=== PATIENT | female | born 1960 | race Caucasian/White ===

== ENCOUNTER → 2016-11-25 | Outpatient (CLI) | payer OTHER ==
[~2016-11-25] MED LIST: CELEXA40 MG PO; CITALOPRAM HBR20 MG PO; CITALOPRAM HBR40 MG PO; COZAAR50 MG PO; KEFLEX500 MG PO; LOSARTAN POTASS25 MG PO; LOSARTAN POTASS50 MG PO; PERCOCET 5/31 TABLET PO
== END | disposition home or self-care (01) ==
DX: M16.12 Unilateral primary osteoarthritis, left hip (principal); M25.552 Pain in left hip; M25.652 Stiffness of left hip, not elsewhere classified; R26.2 Difficulty in walking, not elsewhere classified; M62.89 Other specified disorders of muscle
CPT/HCPCS: 97110 GP; 97150 GO; 97161 GP; 97165 GO

== ENCOUNTER 2016-12-30 09:34 | Inpatient (IN) | payer OTHER ==
[~2016-12-30] VITALS: Ht 167.6 cm; Wt 69.3 kg
[~2016-12-30 09:34] MED LIST changes: +IRON325 M1 PO; +TYLENOL ARTHRI650 MG PO
[2016-12-30 11:47] VITALS: BP 134/82
[2016-12-30 17:12] LABS: HEMATOCRIT 31.4 % (36.0-46.0); MCHC 31.8 G/DL (30.0-36.0); MEAN PLAT.VOLUME 9.1 uM^3 (9.5-12.4); RBC DIS.WIDTH-CV 13.8 % (11.8-14.6); RBC DIS.WIDTH-SD 46.2 % (39-53)
[2016-12-30 17:44] LABS: PLATELET COUNT 217 K/uL (156-360); RED BLOOD COUNT 3.45 M/uL (3.80-5.20); WHITE BLOOD COUNT 12.9 K/uL (4.1-10.2)
[2016-12-30 20:24] VITALS: BP 112/69
[2016-12-31 00:30] VITALS: BP 100/59
[2016-12-31 04:45] VITALS: BP 106/68
[2016-12-31 07:30] LABS: ANION GAP 7 MEQ/L (2-14); CHLORIDE 101 MEQ/L (99-109); GFR ESTIMATE (CALCULATED) > 59 mL/min/; GLUCOSE 128 mg/dL (70-99); POTASSIUM 4.4 MEQ/L (3.7-5.4); SAMPLE HEMOLYSIS CHECK 0; SAMPLE ICTERIC CHECK 0; SAMPLE LIPEMIA CHECK 0; SODIUM 136 MEQ/L (136-147); UREA NITROGEN (BUN) 10 mg/dL (9-23)
[2016-12-31 08:27] VITALS: BP 109/65
[2016-12-31 16:09] VITALS: BP 106/63
[2016-12-31 16:39] LABS: HEMATOCRIT 31.2 % (36.0-46.0); MCV 90.4 FL (83-99)
[2016-12-31 20:21] VITALS: BP 115/60
[2017-01-01 00:13] VITALS: BP 114/67
[2017-01-01 05:26] LABS: HEMATOCRIT 28.5 % (36.0-46.0); MCV 91.9 FL (83-99)
[2017-01-01 06:18] LABS: ANION GAP 7 MEQ/L (2-14); CHLORIDE 104 MEQ/L (99-109); GFR ESTIMATE (CALCULATED) > 59 mL/min/; GLUCOSE 116 mg/dL (70-99); POTASSIUM 3.8 MEQ/L (3.7-5.4); SAMPLE HEMOLYSIS CHECK 0; SAMPLE ICTERIC CHECK 0; SAMPLE LIPEMIA CHECK 0; SODIUM 141 MEQ/L (136-147); UREA NITROGEN (BUN) 11 mg/dL (9-23)
[2017-01-01 08:02] VITALS: BP 112/62
[2017-01-01] MEDS ORDERED: HYDROCODON-ACE1 EAC7 PO (08:48)
[2017-01-01] MEDS ORDERED: LOVENOX40 MG/0.4 SC (08:48)
[2017-01-01] MEDS ORDERED: CELECOXIB200 MG PO (08:48)
[2017-01-01] MEDS ORDERED: DOCUSATE SODIU100 MG PO (08:48)
== END 2017-01-01 16:11 | DRG 470 ==
LOC: 2SOUTH 09:34 → 3EAST 11:25 → 3WEST 12:23 → 2SOUTH 12:24 → 3EAST 20:02
PROVIDERS: Orthopaedic Surgery; Physician Assistant
PROC: 0SRB02A Replacement of Left Hip Joint with Metal on Polyethylene Synthetic Substitute, Uncemented, Open Approach (ICD-10-PCS; principal; 2016-12-30)
DX: M16.12 Unilateral primary osteoarthritis, left hip (principal); F33.9 Major depressive disorder, recurrent, unspecified; I10 Essential (primary) hypertension; R26.0 Ataxic gait; F41.9 Anxiety disorder, unspecified; Z60.2 Problems related to living alone; R26.2 Difficulty in walking, not elsewhere classified; Z85.3 Personal history of malignant neoplasm of breast; Z88.0 Allergy status to penicillin
CPT/HCPCS: 73501; 73502; 77002; 80048; 85014; 85018; 85027; J0131; J1100; J1170; J1650; J2250; J2405; J2710; J2765; J3010; J7050; P9045

== ENCOUNTER 2017-01-13 18:51 | Inpatient (IN) | payer OTHER ==
[~2017-01-13] VITALS: Ht 167.6 cm; Wt 69.0 kg
[~2017-01-13 18:51] MED LIST changes: +CELECOXIB200 MG PO; +DOCUSATE SODIU100 MG PO; +HYDROCODON-ACE1 EAC7 PO; +LOVENOX40 MG/0.4 SC
[2017-01-13 19:48] LABS: EOSINOPHIL (%) 0.2 % (0-5); HEMATOCRIT 37.9 % (36.0-46.0); IMMATURE GRANULOCYTE (%) 0.2 % (0.0-0.7); IMMATURE GRANULOCYTE COUNT 0.3 K/uL; LYMPHOCYTE COUNT 1.1 K/uL (1.0-2.8); MCH 29.9 PG (29.0-34.0); MCHC 33.5 G/DL (30.0-36.0); MCV 89.2 FL (83-99); MEAN PLAT.VOLUME 8.6 uM^3 (9.5-12.4); MONOCYTE (%) 5.6 % (3-12); MONOCYTE COUNT 0.8 K/uL (0-0.8); NEUTROPHIL (%) 85.3 % (45-76); NEUTROPHIL COUNT 11.5 K/uL (1.8-6.4); PLATELET COUNT 439 K/uL (156-360); RBC DIS.WIDTH-CV 13.1 % (11.8-14.6); RBC DIS.WIDTH-SD 41.4 % (39-53); RED BLOOD COUNT 4.25 M/uL (3.80-5.20); WHITE BLOOD COUNT 13.5 K/uL (4.1-10.2)
[2017-01-13 19:58] LABS: CHLORIDE 102 mEq/L (99-109); POTASSIUM 3.9 mEq/L (3.7-5.4); SODIUM 140 mEq/L (136-147)
[2017-01-13 20:01] LABS: GLUCOSE 135 mg/dL (70-99)
[2017-01-13 20:02] LABS: ANION GAP 13 MEQ/L (2-14)
[2017-01-13 20:03] LABS: TOTAL BILIRUBIN 0.4 mg/dL (0.0-1.0)
[2017-01-13 20:04] LABS: ALKALINE PHOSPHATASE 84 IU/L (3-129); GFR ESTIMATE (CALCULATED) > 59 mL/min/
[2017-01-13 20:05] LABS: UREA NITROGEN (BUN) 8 mg/dL (9-23)
[2017-01-13 20:08] LABS: LIPASE 456 U/L (1.0-51.0)
[2017-01-13 20:10] LABS: TROP-I INTERPRETATION NEGATIVE; TROPONIN-I < 0.01 ng/mL (0.0-0.30)
[2017-01-13] MEDS ORDERED: FISH OIL 1,0001 EA11 PO (21:38)
[2017-01-13 22:43] LABS: ADD MIUA? NO; BILIRUBIN NEGATIVE; BLOOD NEGATIVE; COLOR YELLOW ((YELLOW)); GLUCOSE (STRIP) NEGATIVE; KETONES NEGATIVE; LEUKOCYTES NEGATIVE; NITRITE NEGATIVE; PROTEIN (STRIP) NEGATIVE; SPECIFIC GRAVITY 1.034 (1.000-1.030); UCUL ADDED? NO; UROBILINOGEN 0.2 MG/DL (0.2-1.0)
[2017-01-14 00:02] LABS: C-REACTIVE PROTEIN 6.3 MG/L (0-10); TRIGLYCERIDES 186 MG/DL (Normal: <150)
[2017-01-14 00:23] VITALS: BP 153/95
[2017-01-14 00:42] VITALS: BP 153/95
[2017-01-14 02:20] VITALS: BP 112/70
[2017-01-14 07:03] LABS: EOSINOPHIL (%) 0.6 % (0-5); EOSINOPHIL COUNT 0.1 K/uL (0-0.3); HEMATOCRIT 31.4 % (36.0-46.0); IMMATURE GRANULOCYTE (%) 0.2 % (0.0-0.7); LYMPHOCYTE COUNT 1.8 K/uL (1.0-2.8); MCH 29.2 PG (29.0-34.0); MCHC 32.2 G/DL (30.0-36.0); MCV 90.8 FL (83-99); MEAN PLAT.VOLUME 8.9 uM^3 (9.5-12.4); MONOCYTE (%) 8.3 % (3-12); MONOCYTE COUNT 0.7 K/uL (0-0.8); NEUTROPHIL (%) 68.6 % (45-76); NEUTROPHIL COUNT 5.6 K/uL (1.8-6.4); PLATELET COUNT 334 K/uL (156-360); RBC DIS.WIDTH-CV 13.8 % (11.8-14.6); RBC DIS.WIDTH-SD 45.5 % (39-53); RED BLOOD COUNT 3.46 M/uL (3.80-5.20)
[2017-01-14 07:11] LABS: ALKALINE PHOSPHATASE 64 IU/L (3-129); ANION GAP 7 MEQ/L (2-14); CHLORIDE 104 MEQ/L (99-109); GFR ESTIMATE (CALCULATED) > 59 mL/min/; LIPASE 26 U/L (1.0-51.0); POTASSIUM 3.8 MEQ/L (3.7-5.4); SAMPLE HEMOLYSIS CHECK 0; SAMPLE ICTERIC CHECK 0; SAMPLE LIPEMIA CHECK 0; SODIUM 140 MEQ/L (136-147); TOTAL BILIRUBIN 0.4 MG/DL (0.0-1.0); UREA NITROGEN (BUN) 5 mg/dL (9-23)
[2017-01-14 07:13] LABS: WHITE BLOOD COUNT 8.2 K/uL (4.1-10.2)
[2017-01-14 07:14] VITALS: BP 118/81
[2017-01-14 07:21] LABS: GLUCOSE 99 mg/dL (70-99)
[2017-01-14 14:59] VITALS: BP 128/80
[2017-01-15] VITALS: BP 119/75
[2017-01-15 07:29] VITALS: BP 154/87
[2017-01-15 07:36] LABS: HEMATOCRIT 32.8 % (36.0-46.0); MCH 28.7 PG (29.0-34.0); MCHC 31.7 G/DL (30.0-36.0); MCV 90.6 FL (83-99); PLATELET COUNT 341 K/uL (156-360); RBC DIS.WIDTH-CV 13.8 % (11.8-14.6); RBC DIS.WIDTH-SD 45.6 % (39-53); RED BLOOD COUNT 3.62 M/uL (3.80-5.20)
[2017-01-15 07:40] LABS: WHITE BLOOD COUNT 4.9 K/uL (4.1-10.2)
[2017-01-15 11:42] VITALS: BP 137/72
[2017-01-15 14:57] VITALS: BP 124/83
[2017-01-16 00:03] VITALS: BP 114/67
[2017-01-16 07:36] VITALS: BP 131/77
[2017-01-16] MEDS ORDERED: PANTOPRAZOLE SO40 MG PO (11:08)
== END 2017-01-16 14:01 | disposition home health service (06) | DRG 391 ==
LOC: EME 18:51 → EDOF 23:11 → 5SOUTH 23:11
PROVIDERS: Emergency Medicine; Hospitalist; Nurse Practitioner Adult Health
PROC: 0DB68ZX Excision of Stomach, Via Natural or Artificial Opening Endoscopic, Diagnostic (ICD-10-PCS; principal; 2017-01-15)
DX: K29.90 Gastroduodenitis, unspecified, without bleeding (principal); K85.10 Biliary acute pancreatitis without necrosis or infection; K26.9 Duodenal ulcer, unspecified as acute or chronic, without hemorrhage or perforation; F32.9 Major depressive disorder, single episode, unspecified; I10 Essential (primary) hypertension; Z96.642 Presence of left artificial hip joint; G43.809 Other migraine, not intractable, without status migrainosus; M19.90 Unspecified osteoarthritis, unspecified site; Z47.1 Aftercare following joint replacement surgery
CPT/HCPCS: 71020; 74177; 80053; 81003; 83690; 84478; 84484; 85014; 85018; 85025; 85027; 86140; 88305; 88342 TC; 93005; 99281; 99285; C9113; J1100; J1170; J1650; J2250; J2270; J2405; J3010; J7030; J7120